=== PATIENT | male | born 2000 | race Caucasian/White ===

== ENCOUNTER 2022-05-11 20:43 | Emergency (ER) | payer MEDICAID ==
[~2022-05-11] VITALS: Ht 185.4 cm; Wt 70.5 kg
[2022-05-11 20:49] VITALS: BP 134/89
[2022-05-11 22:35] LABS: BASOPHILS # (AUTO) 0.1 X10'3 (0-0.2); EOSINOPHILS # (AUTO) 0.2 X10'3 (0-0.9); EOSINOPHILS % (AUTO) 1.8 % (0-6); HEMATOCRIT 51.5 % (42.0-52.0); HEMOGLOBIN 17.8 g/dl (14.0-17.9); LYMPHOCYTES # (AUTO) 3.1 X10'3 (1.1-4.8); LYMPHOCYTES % (AUTO) 34.2 % (21-51); MEAN CORPUSCULAR HEMOGLOBIN 31.7 PG (27.0-31.0); MEAN CORPUSCULAR HGB CONC 34.6 g/dL (33.0-36.5); MEAN CORPUSCULAR VOLUME 91.6 FL (78-98); MEAN PLATELET VOLUME 8.1 FL (7.4-10.4); MONOCYTES # (AUTO) 0.9 X10'3 (0-0.9); NEUTROPHILS # (AUTO) 4.7 X10'3 (1.8-7.7); PLATELET COUNT 264 X10'3 (140-440); RED BLOOD COUNT 5.62 X10'6 (4.70-6.10); RED CELL DISTRIBUTION WIDTH 14.2 % (11.5-14.5); WHITE BLOOD COUNT 8.9 X10'3 (4.5-11.0)
[2022-05-11 22:39] LABS: ALANINE AMINOTRANSFERASE 63 U/L (12-78); ALBUMIN 4.4 G/DL (3.4-5.0); ALBUMIN/GLOBULIN RATIO 1.2 (1.1-1.5); ALKALINE PHOSPHATASE 87 IU/L (20-180); ANION GAP 7 (8-16); ASPARTATE AMINO TRANSFERASE 40 U/L (10-37); BILIRUBIN,TOTAL 0.5 MG/DL (0.1-1.0); BLOOD UREA NITROGEN 19 MG/DL (7-18); BUN/CREATININE RATIO 20.2 (5.4-32.0); CALCIUM 9.6 MG/DL (8.5-10.1); CHLORIDE 104 MMOL/L (99-107); CREATININE 0.94 MG/DL (0.60-1.10); GLUCOSE 66 MG/DL (70-104); LIPASE 135 U/L (73-393); POTASSIUM 4.1 MMOL/L (3.5-5.1); SODIUM 140 MMOL/L (135-145); TOTAL CARBON DIOXIDE 28.7 MMOL/L (24-32); TOTAL PROTEIN 8.2 G/DL (6.4-8.2); eGFR > 90 ML/MIN
[2022-05-11 23:17] LABS: CLARITY,URINE CLEAR (Clear); COLOR,URINE YELLOW (Yellow); GLUCOSE, URINE NEGATIVE (Neg); KETONES,URINE NEGATIVE (Neg); LEUKOCYTE ESTERASE ,URINE NEGATIVE (Neg); NITRITES, URINE NEGATIVE (Neg); OCCULT BLOOD,URINE NEGATIVE (Neg); PROTEIN,URINE NEGATIVE (Neg); UROBILINOGEN,URINE 0.2 E.U/dL (0.2-1.0)
[2022-05-11 23:21] LABS: UA COLLECTION TYPE CLN CATCH MIDSTREAM
== END 2022-05-12 00:27 | disposition left against medical advice (07) ==
LOC: ER 20:43
DX: R10.9 Unspecified abdominal pain (principal); Z53.21 Procedure and treatment not carried out due to patient leaving prior to being seen by health care provider
CPT/HCPCS: 36415; 80053; 81003; 83690; 85025

== ENCOUNTER 2024-01-04 10:53 | Emergency (ER) | payer MEDICAID ==
[~2024-01-04] VITALS: Ht 185.4 cm; Wt 69.7 kg
[2024-01-04 11:17] VITALS: BP 131/84; PULSE 76; RESP 17; TEMP 97.8; O2SAT 100
== END 2024-01-04 11:59 | disposition home or self-care (01) ==
LOC: ER 10:53
DX: S60.221A Contusion of right hand, initial encounter (principal); S60.222A Contusion of left hand, initial encounter; X58.XXXA Exposure to other specified factors, initial encounter; Y93.89 Activity, other specified; Y92.89 Other specified places as the place of occurrence of the external cause; Y99.8 Other external cause status
CPT/HCPCS: 73130; 99283

== ENCOUNTER 2024-04-11 15:01 | Emergency (ER) | payer MEDICAID ==
[~2024-04-11] VITALS: Ht 185.4 cm; Wt 71.5 kg
[2024-04-11 15:08] VITALS: BP 135/91; PULSE 81; O2SAT 96
[2024-04-11] MEDS ORDERED: CLON1PAT14 TOP (16:36)
[2024-04-11] MEDS ORDERED: ONDA8TAB13 PO (16:36)
[2024-04-11 16:46] VITALS: RESP 16; TEMP 98.3
== END 2024-04-11 16:47 | disposition home or self-care (01) ==
LOC: ER 15:02
DX: F11.20 Opioid dependence, uncomplicated (principal)
CPT/HCPCS: 99283

== ENCOUNTER 2025-03-02 18:53 | Emergency (ER) | payer SELFPAY ==
[~2025-03-02] VITALS: Ht 185.4 cm; Wt 71.1 kg
[~2025-03-02 18:53] MED LIST: CLON1PAT14 TOP; ONDA-245 PO
--- NOTE | 2025-03-02 20:48 | Physician Documentation ---
History of Present Illness ~ General Chief Complaint: Mental Health Eval Stated Complaint: SUICIDAL/MENTAL HEALTH EVAL Time Seen by MD: 20:30 Primary Medical Doctor: NO PMD Mode of Arrival: POV, Ambulatory History of Present Illness Initial Comments 24 year old male requesting to be put back on his psych medications. Would like to speak to a mental health worker as well. Denies medical complaints. Medication Reconciliation Allergies: Coded Allergies: No Known Allergies (Unverified , 05/11/22) Scheduled Clonidine (Clonidine), 1 PATCH TOP Q7D Ondansetron 8mg ODT (Ondansetron Odt), 1 TAB PO Q6H Review of Systems All Other Systems at this time: Reviewed and Negative Physical Exam Physical Exam Vital Signs: RN Vital Signs have been reviewed: Yes, Temperature: 97.2, Source: Temporal, Heart Rate: 68, Respiratory Rate: 16, BP: 115/75, Pulse Oximetry: 98, Weight: 71.100 Oxygen Flow Rate: 0 Physical Exam HEENT: PERRL, moist oral mucosa, EOMI Pulmonary: No respiratory distress MSK: no deformity Skin: w/d/i, no rash Neuro: alert, nonfocal Psych: normal affect Progress Results/Orders Results/Orders Orders - VARGAS DURAN MD Cbc/Diff (03/02/25 20:37) Urinalysis (03/02/25 20:37) Drug Screen, Urine (03/02/25 20:37) Ethanol (03/02/25 20:37) TSH (03/02/25 20:37) Mh Med Rec (03/02/25 20:37) BMP (03/02/25 20:37) Close Observation Level (03/02/25 20:37) Covid19 Binax Poc Result Entry (03/02/25 20:37) Regular Diet (03/03/25 Breakfast) Vital Signs 03/02/25 03/02/25 03/02/25 19:08 20:35 20:44 Temp 97.2 Pulse 83 68 Resp 16 16 B/P (MAP) 120/85 115/75 (88) Pulse Ox 100 98 O2 Flow Rate 0 Medical Decision Making Findings 24 year old male with psych complaints. Counseled that pharmacies are not open right now and that behavioral health will need until the morning to evaluate him. Patient elected to leave and come back in the AM, able to verbalize a plan of self-care and denied SI/HI. Differential Diagnosis Ddx = medication noncompliance, substance abuse, psychiatric disorder Departure Disposition: 01 HOME / SELF CARE / HOMELESS Impression: Primary Impression: Medication refill Condition: Stable Discharge Instructions: Medical Screening Exam Referrals: NO PRIMARY CARE PROVIDER (PCP) Education Educated: Patient Educated regarding: diagnosis, treatment, prognosis, need for follow up Signature Scribe Signature: . Attestation: . VARGAS DURAN MD March 02, 2025 20:48
[2025-03-02 20:54] VITALS: BP 115/75; PULSE 67; RESP 16; TEMP 98.3; O2SAT 96
[2025-03-03] MEDS ORDERED: AMPH10TA23 PO (06:52)
[2025-03-03] MEDS ORDERED: CARI3CAP PO (06:52)
== END 2025-03-02 20:57 | disposition home or self-care (01) ==
LOC: ER 18:54
DX: Z00.8 Encounter for other general examination (principal)
CPT/HCPCS: 99281

== ENCOUNTER 2025-03-03 06:21 | Emergency (ER) | payer SELFPAY ==
[~2025-03-03] VITALS: Ht 182.9 cm; Wt 78.2 kg
[2025-03-03 06:30] VITALS: BP 120/86; PULSE 60; TEMP 97.1; O2SAT 99
--- NOTE | 2025-03-03 06:50 | Physician Documentation ---
HPI ~ General Chief Complaint: Medication Refill Stated Complaint: MED REQUEST Time Seen by MD: 06:31 Primary Medical Doctor: NO PMD History of Present Illness HPI Comments This is a pleasant 24-year-old gentleman who presents with a request of medication refill. He has known bipolar and ADHD. He normally sees Tonia Silva, however he has not been able to see his PCP/psychiatrist due to insurance issues. He is out of his regular, atomoxetine, Adderall. He has been recently self medicating with kratom, however he wants to quit at this point. At the time of my examination he denies any somatic complaints. There is obvious concern for substance use disorder in his gentleman,. Medication Reconciliation Allergies: Coded Allergies: No Known Allergies (Unverified , 05/11/22) Scheduled Clonidine (Clonidine), 1 PATCH TOP Q7D Ondansetron 8mg ODT (Ondansetron Odt), 1 TAB PO Q6H Review of Systems ROS 10 point review of systems was performed and unless noted above in HPI is negative for acute process/complaint. Physical Exam Physical Exam Vital Signs: Temperature: 97.1, Source: Temporal, Heart Rate: 60, Respiratory Rate: 18, BP: 120/86, Pulse Oximetry: 99, Weight: 78.200 Physical Exam Physical examination: GENERAL: Awake, alert, oriented, GCS 15, no apparent distress, non-toxic appearing, answers questions, follows commands appropriately. HEENT: Atraumatic, normocephalic, pupils equal, extraocular muscles intact Active gross movements, sclerae anicteric, mucus membranes moist, no stridor. NECK: Midline, no JVD CARDIOVASCULAR: Good skin perfusion without evidence of pallor, mottling. PULMONARY: Nonlabored, symmetric chest rise, no audible wheezing, no accessory muscle use, no respiratory distress, speaking in full sentences. GASTROINTESTINAL: Not distended. NEUROLOGIC: Lucid with normal mental status. Normal facial symmetry. Moves all extremities symmetrically and with purpose. No truncal ataxia. Speech is fluid without evidence of dysarthria or aphasia, no focal deficits appreciated. EXTREMITIES: Acute deformities Skin: warm, dry PSYCHIATRIC: Normal affect, normal insight, normal concentration. Focused exam: [] Progress Results/Orders Results/Orders Vital Signs 03/03/25 06:30 Temp 97.1 Pulse 60 Resp 18 B/P (MAP) 120/86 Pulse Ox 99 Medical Decision Making Findings Facility Status: ED Holds, RME process The plan was discussed with the patient, who demonstrates clear understanding of the plan and is in agreement with the plan unless otherwise noted in the chart. All questions have been answered, all concerns were addressed unless otherwise documented. I was available throughout their ED stay for frequent reassessment and questions. Differential Diagnoses (considered and possible or likely): [ADHD, bipolar, decompensation of psychiatric disease, medication request, less likely drug- seeking behavior although that remains a concern] ??Differential Diagnoses (considered and unlikely, not requiring evaluation currently): [Clinically denies any somatic complaints at this time] MDM Data Please see [facility] for the following: Independent Historians and external Records Review. Historian: [Patient] Independent Historians: ?[Girlfriend, record review including cures report] Medication Management: [Reviewed medication list] Social History and determinants: [Reviewed] Please see the body of the note for the following: Any independent interpretations of ECG, imaging studies. All vitals signs/haemodynamics, ordered tests were independently reviewed and interpreted by myself. Nursing triage complaint and vitals reviewed, additional nursing notes were reviewed as available and I agree unless otherwise noted or documented in contradiction in the chart Vital Signs: Independently reviewed Labs: Independently interpreted Imaging: Independently interpreted Old Medical Records: Independently reviewed, see [facility] for relevant summary and information Pulse Oximetry: [100%] interpreted as [normal on room air] by me Additionally notably showing: [Hemodynamically stable] Tests considered but not ordered include: [Hematologic workup and imaging has been considered but does not appear to be necessary given clinical nature of diagnosis] Social Determinants of Health Impact: Patient was evaluated in [facility], [facility] [place] to healthcare due to below par ratio of patient to medical providers. [] Comorbid Conditions Impacting Present Evaluation and Care/Treatment: [ADHD, bipolar, kratom use] Management Discussions with other Healthcare Providers: [Non] Treatment and Disposition Medication Management (Given or considered): []. See EMR for details Consideration for Hospitalization/Escalation/Deescalation of Care: Admission for observation has been considered, [however the patient is able to tolerate p.o., their symptoms are controlled, they are able to rely on oral medications, and t heir chief complaint/diagnosis can be managed on outpatient basis.] ?ED Course:?[Verified medications. Has a very extensive discussion with the aggravating refills on controlled substances in the ED. the patient will be aided with establishment of insurance and emergency medical.] ?Shared decision making:?[Patient is hemodynamically stable for discharge home with follow with their primary care provider. [ ] Specific and cautious return precautions provided and discussed with full understanding. Any incidental findings were also discussed and follow up recommendations given. [] All questions answered. Patient/family were able to verbalize back return precautions. Patient/family agree to plan. Copies of imaging and laboratory studies were provided.] Code status:?FULL Please see the full Electronic Medical Record for full details of nursing documentation, medications list, other records of complete past medical history and conditions, vital signs, laboratory studies, and any radiologic study interpretations by radiologists. Portions of this note were completed using [employer] dictation software and as a result there may exist minor errors in spelling. I have reviewed elements of past family and social history and agree as included in note. Departure Disposition: HOME / SELF CARE / HOMELESS Impression: Primary Impression: Medication refill Additional Impressions: ADHD Bipolar disorder Condition: Improved Discharge Instructions: Medicine Refill at the Emergency Department Referrals: NO PRIMARY CARE PROVIDER (PCP) Prescriptions Amphet Asp/Amphet/D-Amphet (Adderall 10 Mg Tablet) 10 Mg Tablet 1 TABLET PO BID, #30 TABLET Prov: GRIS RIOS DO 03/03/25 Cariprazine Hydrochloride (Vraylar) 3 Mg Capsule 1 CAP PO DAILY for 30 Days, #30 CAP 1 Refill Prov: GRIS RIOS DO 03/03/25 Education Educated: Patient, Family Educated regarding: diagnosis, treatment, prognosis, need for follow up Signature Scribe Signature: No scribe Attestation: This note accurately reflects clinical decisions, work performed by myself, DO GABRIEL Donnelly NICHOLAS M DO March 03, 2025 06:50
[2025-03-03] MEDS ORDERED: CARI3CAP PO (06:52)
[2025-03-03] MEDS ORDERED: AMPH10TA23 PO (06:52)
[2025-03-03 07:23] VITALS: RESP 16
== END 2025-03-03 07:24 | disposition home or self-care (01) ==
LOC: ER 06:22
DX: F31.9 Bipolar disorder, unspecified (principal); F90.9 Attention-deficit hyperactivity disorder, unspecified type; Z76.0 Encounter for issue of repeat prescription; Z79.899 Other long term (current) drug therapy
CPT/HCPCS: 99281